=== PATIENT | male | born 1980 | race Caucasian/White ===

== ENCOUNTER 2019-07-28 17:52 | Emergency (ER) | payer BC, SELFPAY ==
[~2019-07-28] VITALS: Ht 170.2 cm; Wt 63.5 kg
[2019-07-28 18:23] VITALS: Ht 170.2 cm; Wt 63.5 kg
[2019-07-28 21:20] LABS: BASOPHIL % 0.5 % (0-2); PLATELET COUNT 119 x10^3mcL (130-400)
[2019-07-28 21:26] LABS: ALBUMIN 3.5 g/dL (3.4-5.0); ALKALINE PHOSPHATASE 56 U/L (46-116); ALT/SGPT 22 U/L (16-63); AST/SGOT 17 U/L (15-37); BILIRUBIN TOTAL 0.3 mg/dL (0.20-1.00); CARBON DIOXIDE 30.7 mmol/L (21-32); CHLORIDE SERUM 98 mmol/L (98-107); CREATININE SERUM 1.2 mg/dL (0.7-1.3); GFR1 > 60 mL/min; GLUCOSE SERUM 88 mg/dL (74-106); LIPASE 137 IU/L (73-393); SODIUM SERUM 135 mmol/L (136-145); TOTAL PROTEIN, SERUM 6.7 g/dL (6.4-8.2)
[2019-07-28 23:03] VITALS: BP 102/75
== END 2019-07-28 23:03 | disposition home or self-care (01) ==
LOC: ED 17:52
PROVIDERS: Emergency Medicine
DX: B34.9 Viral infection, unspecified (principal); B35.4 Tinea corporis
CPT/HCPCS: 36415; J1885